=== PATIENT | female | born 1950 | race Caucasian/White ===

== ENCOUNTER 2017-08-17 19:21 | Inpatient (IN) | payer OTHER ==
[~2017-08-17] VITALS: Ht 167.6 cm; Wt 96.6 kg
[2017-08-17 19:24] VITALS: Ht 167.6 cm; Wt 96.6 kg
[2017-08-17 20:52] LABS: PLATELET COUNT 273 x10^3mcL (130-400); RED CELL DISTRIBUTION WIDTH 13.3 % (11.5-14.5)
[2017-08-17 20:55] LABS: BASOPHIL % 0 % (0-2)
[2017-08-17 20:56] LABS: CALCIUM 9.1 mg/dL (8.5-10.1); CARBON DIOXIDE 29.5 mmol/L (21-32); CHLORIDE SERUM 98 mmol/L (98-107); CREATININE SERUM 0.8 mg/dL (0.6-1.0); GFR1 > 60 mL/min; GLUCOSE SERUM 95 mg/dL (74-106); POTASSIUM SERUM 3.8 mmol/L (3.5-5.1); SODIUM SERUM 137 mmol/L (136-145)
[2017-08-17 21:00] LABS: ALKALINE PHOSPHATASE 196 U/L (46-116); ALT/SGPT 38 U/L (14-59); AST/SGOT 35 U/L (15-37); BILIRUBIN TOTAL 0.22 mg/dL (0.20-1.00); MAGNESIUM 1.9 mg/dL (1.8-2.4)
[2017-08-17 21:02] LABS: ALBUMIN 3.3 g/dL (3.4-5.0); CHOLESTEROL 218 mg/dL (<200); HDL CHOLESTEROL 84 mg/dL (40-60)
[2017-08-17] MEDS ORDERED: SYMBICORT1 AE2 INH (21:23)
[2017-08-17] MEDS ORDERED: DILANTIN100 MG PO (21:24)
[2017-08-17] MEDS ORDERED: VENTOLIN H0.09 MG/A1 INH (21:25)
[2017-08-17] MEDS ORDERED: LIPITOR80 MG PO (21:25)
[2017-08-17] MEDS ORDERED: LOSARTAN POTASS50 M1 PO (21:27)
[2017-08-17] MEDS ORDERED: LASIX20 MG PO (21:27)
[2017-08-17] MEDS ORDERED: POTASSIUM CHLO10 MEQ PO (21:28)
[2017-08-17] MEDS ORDERED: CRAN-MAX500 M1 (21:29)
[2017-08-18 00:05] LABS: microscopic required? NO
[2017-08-18 00:27] VITALS: BP 140/57
[2017-08-18 00:45] LABS: urine erythrocyte NEGATIVE (NEGATIVE)
[2017-08-18 01:12] LABS: AMPHETAMINE QUAL UR NONE DETECTED (NEG <=1000)
[2017-08-18 02:07] LABS: PHOSPHOROUS 3.6 mg/dL (2.5-4.9)
[2017-08-18 02:17] LABS: T3 TOTAL 0.89 ng/mL
[2017-08-18 02:18] LABS: FREE T4 0.96 ng/dL (0.76-1.46); FREE THYROXINE INDEX 2.6 ug/dL (1.4-4.5); T4(THYROXINE) 8.7 ug/dL (4.7-13.3)
[2017-08-18 05:36] VITALS: BP 130/60
[2017-08-18 06:28] LABS: CALCIUM 8.9 mg/dL (8.5-10.1); CARBON DIOXIDE 28.5 mmol/L (21-32); CREATININE SERUM 1.2 mg/dL (0.6-1.0); PHOSPHOROUS 4.7 mg/dL (2.5-4.9); POTASSIUM SERUM 4.7 mmol/L (3.5-5.1)
[2017-08-18 06:42] LABS: BASOPHIL % 0.2 % (0-2); PLATELET COUNT 242 x10^3mcL (130-400); RED CELL DISTRIBUTION WIDTH 13.3 % (11.5-14.5)
[2017-08-18 09:25] VITALS: BP 127/58
[2017-08-18 12:35] VITALS: BP 116/53
[2017-08-18 17:07] VITALS: BP 126/54
[2017-08-18 20:14] VITALS: BP 149/62
[2017-08-19 05:03] VITALS: BP 137/50
[2017-08-19 06:08] LABS: BASOPHIL % 0.3 % (0-2); PLATELET COUNT 207 x10^3mcL (130-400); RED CELL DISTRIBUTION WIDTH 13.4 % (11.5-14.5)
[2017-08-19 06:26] LABS: CARBON DIOXIDE 32.1 mmol/L (21-32); CHLORIDE SERUM 106 mmol/L (98-107); CREATININE SERUM 0.9 mg/dL (0.6-1.0); GFR1 > 60 mL/min; GLUCOSE SERUM 88 mg/dL (74-106); PHOSPHOROUS 3.3 mg/dL (2.5-4.9); POTASSIUM SERUM 4.6 mmol/L (3.5-5.1); SODIUM SERUM 144 mmol/L (136-145)
[2017-08-19 09:34] VITALS: BP 134/57
[2017-08-19] MEDS ORDERED: ECO81 PO (10:51)
[2017-08-19] MEDS ORDERED: PROTONIX40 MG PO (10:52)
[2017-08-19] MEDS ORDERED: METOPROLOL TART25 M1 PO (10:54)
[2017-08-19] MEDS ORDERED: IMD60 PO (10:55)
[2017-08-19] MEDS ORDERED: LAC PO (11:00)
[2017-08-19] MEDS ORDERED: LEVAQUIN750 MG PO (11:00)
[2017-08-19 11:42] VITALS: BP 134/57
== END 2017-08-19 13:52 | disposition home or self-care (01) | DRG 205 ==
LOC: ED 19:21 → DU 23:35
PROVIDERS: Emergency Medicine; Family Medicine
DX: M94.0 Chondrocostal junction syndrome [Tietze] (principal); J96.00 Acute respiratory failure, unspecified whether with hypoxia or hypercapnia; N17.0 Acute kidney failure with tubular necrosis; J44.1 Chronic obstructive pulmonary disease with (acute) exacerbation; E44.1 Mild protein-calorie malnutrition; Z88.6 Allergy status to analgesic agent; I10 Essential (primary) hypertension; E78.00 Pure hypercholesterolemia, unspecified; G40.909 Epilepsy, unspecified, not intractable, without status epilepticus; I25.10 Atherosclerotic heart disease of native coronary artery without angina pectoris; G89.29 Other chronic pain; M54.9 Dorsalgia, unspecified; Z87.891 Personal history of nicotine dependence; I73.9 Peripheral vascular disease, unspecified; I71.9 Aortic aneurysm of unspecified site, without rupture; G47.33 Obstructive sleep apnea (adult) (pediatric); E66.9 Obesity, unspecified; Z68.34 Body mass index [BMI] 34.0-34.9, adult; G90.8 Other disorders of autonomic nervous system
CPT/HCPCS: 36600; 83880; 84439; 85378; J1885; J2543; J2930; J7030; J7613; J7620; J7626; J7644; Q0092; Q9967

== ENCOUNTER 2020-01-22 07:50 | Emergency (ER) | payer OTHER ==
[~2020-01-22] VITALS: Ht 167.6 cm; Wt 72.6 kg
[2020-01-22 07:50] VITALS: Ht 167.6 cm; Wt 72.6 kg
[~2020-01-22 07:50] MED LIST: CIPRO500 MG PO; CRAN-MAX500 M1; DILANTIN100 MG PO; ECO81 PO; FOLIC ACID0.8 MG; IMD60 PO; LAC PO; LASIX20 MG PO; LEVAQUIN750 MG PO; LIPITOR80 MG PO; LOSARTAN POTASS50 M1 PO; MAGNESIUM OXID200 MG; METOPROLOL TART25 M1 PO; NATURE'S BLEND500 MG PO; POTASSIUM CHLO10 MEQ PO; POTASSIUM99 M1; PROTONIX40 MG PO; SYMBICORT1 AE2 INH; VENTOLIN H0.09 MG/A1 INH; VITD
== END 2020-01-22 12:29 | disposition expired ==
LOC: ED 07:50
DX: I46.9 Cardiac arrest, cause unspecified (principal); I50.9 Heart failure, unspecified; J44.9 Chronic obstructive pulmonary disease, unspecified; Z88.5 Allergy status to narcotic agent; Z20.828 Contact with and (suspected) exposure to other viral communicable diseases
CPT/HCPCS: J0171; J7030